=== PATIENT | female | born 1985 | race Native Hawaiian/Other Pacific Islander ===

== ENCOUNTER 2023-04-18 00:02 | Emergency (ER) | payer OTHER ==
[~2023-04-18] VITALS: Ht 154.9 cm; Wt 76.2 kg
[2023-04-18 00:45] VITALS: BP 116/68; TEMP 98
== END 2023-04-18 00:45 | disposition home or self-care (01) ==
LOC: ED 00:02
DX: T40.411A Poisoning by fentanyl or fentanyl analogs, accidental (unintentional), initial encounter (principal); F17.210 Nicotine dependence, cigarettes, uncomplicated; F12.90 Cannabis use, unspecified, uncomplicated
CPT/HCPCS: 93005; 99282